=== PATIENT | male | born 1960 | race Hispanic/Latino ===

== ENCOUNTER 2020-02-24 12:23 | Emergency (ER) | payer OTHER ==
[2020-02-24 13:25] LABS: Basophils % 0.7 % (0-1.3); Hematocrit 44.8 % (39.6-49.0); Lymphocytes % 14.5 % (15.3-44.8); RBC Red Blood Cell Count 5.23 M/uL (4.33-5.43)
--- NOTE | 2020-02-24 13:33 | RAD REPORT ---
EXAM DESCRIPTION: CT - Head Brain Wo Cont - 02/24/2020 1:22 pm CLINICAL HISTORY: Visual disturbance COMPARISON: None. TECHNIQUE: Computed axial tomography of the head was obtained. IV contrast was not requested. All CT scans are performed using dose optimization technique as appropriate and may include automated exposure control or mA/KV adjustment according to patient size. FINDINGS: An intracranial bleed is not seen . The ventricles are normal in caliber. No extra-axial fluid collection is noted. Fluid within the sinuses/ mastoids is not seen. IMPRESSION: No acute intracranial abnormality is seen. If patient's symptoms persist MRI of the bra in would be recommended.
[2020-02-24 13:43] LABS: ALT/SGPT 32 U/L (12-78); AST/SGOT 20 U/L (15-37); Albumin 3.8 g/dL (3.4-5.0); Alkaline Phosphatase 118 U/L (45-117); BUN Blood Urea Nitrogen 16 mg/dL (7-18); Bicarbonate 25 mmol/L (21-32); Bilirubin Direct 0.2 mg/dL (0-0.2); Bilirubin Total 0.8 mg/dL (0.2-1.0); Glucose Level 104 mg/dL (74-106); Magnesium 2.3 mg/dL (1.8-2.4); NT PRO-BNP 174 pg/mL (<125); Protein, Total 7.4 g/dL (6.4-8.2); Sodium Level 140 mmol/L (136-145); Troponin (Emerg Dept Use Only) < 0.02 ng/mL (0.0-0.045)
--- NOTE | 2020-02-24 14:28 | RAD REPORT ---
EXAM DESCRIPTION: Khang Single View02/24/2020 2:03 pm CLINICAL HISTORY: Chest pain COMPARISON: none FINDINGS: Lungs are hyperaerated. The lungs appear clear of acute infiltrate. The heart is normal size IMPRESSION: No acute abnormalities displayed
--- NOTE | 2020-02-24 15:43 | RAD REPORT ---
EXAM DESCRIPTION: USCarotid Artery Bilateral02/24/2020 3:21 pm CLINICAL HISTORY: Blurred vision COMPARISON: None FINDINGS: The velocity of the right internal carotid artery equals eighty-seven cm/sec. The right IC A/CCA ratio 1. The velocity of the left internal carotid artery equals 77 cm/sec. The left ICA/CCA ratio 0.8 Mild plaque is present within the carotid arteries. The vertebral arteries demonstrate antegrade flow IMPRESSION: Mild plaque within the carotid arteries without evidence of a hemodynamically significan t stenosis NASCET criteria used. Mild 0-49% stenosis Moderate 50-69% stenosis Severe 70-99% stenosis
--- NOTE | 2020-02-24 16:05 | EDPHYS ---
Physician Documentation [facility] Name: Levy Chicas Age: 60 yrs Sex: Male : 1960 Arrival Date: 02/24/2020 Time: 12:26 Bed 5 Private MD: ED Physician Bello Peña HPI: 02/23 12:51 This 60 yrs old Male presents to ER via Ambulatory with complaints of Vision jmm Problem. 12:51 The patient's problem is reported as visual difficulty, blurred vision, double vision. jmm Onset: The symptoms/episode began/occurred acutely, 4 day(s) ago. The symptoms are alleviated by nothing. The symptoms are aggravated by nothing. Associated signs and symptoms: Pertinent positives: blurred vision, lightheadedness, weakness. This is a 60 year old male with no known chronic medical conditions that presents to the ED with complaints of acute onset of blurred while riding in his boat as he turned to look at the shoreline. Patient states it initially began as double vision, the patient then developed blurred vision. These symptoms resolved after 3 minutes. Patient states that since he developed generalized weakness with tingling sensation to his hands. Denies chest pain, shortness of breath, unilateral weakness. . Historical: - Allergies: 12:54 No Known Allergies; ss - Home Meds: 12:54 None [Active]; ss - PMHx: 12:54 None; ss - Immunization history:: Adult Immunizations unknown. - Social history:: Smoking status: Patient reports the use of cigarette tobacco products, smokes one pack cigarettes per day. Patient uses alcohol, occasionally. ROS: 12:51 Constitutional: Negative for fever, chills, and weight loss, Cardiovascular: Negative jmm for chest pain, palpitations, and edema, Respiratory: Negative for shortness of breath, cough, wheezing, and pleuritic chest pain, Abdomen/GI: Negative for abdominal pain, nausea, vomiting, diarrhea, and constipation. 12:51 MS/extremity: Positive for 12:51 Neuro: Positive for visual changes, weakness. 12:51 All other systems are negative. Exam: 12:51 Radiologist reports: no acute process jmm 12:51 Constitutional: This is a well developed, well nourished patient who is awake, alert, and in no acute distress. Head/Face: atraumatic. 12:51 ENT: Moist Mucus Membranes Neck: Trachea midline, Supple Chest/axilla: Normal chest wall appearance and motion. Cardiovascular: Regular rate and rhythm. No edema appreciated Respiratory: Normal respirations, no respiratory distress appreciated Abdomen/GI: Non distended, soft Back: Normal ROM Skin: General appearance color normal MS/ Extremity: Moves all extremities, no obvious deformities appreciated, no edema noted to the lower extremities 12:51 Eyes: Extraocular movements: intact throughout, Visual florian: are intact. 12:51 Neuro: Orientation: is normal, Mentation: is normal, Memory: is normal, Cerebellar function: normal finger to nose testing, heel to wisdom testing is normal, Gait: appropriate for age. 12:51 Psych: Behavior/mood is pleasant, cooperative. 14:03 ECG was reviewed by the Attending Physician. [facility] Vital Signs: 12:30 BP 152 / 83; Pulse 77; Resp 16; Temp 98; Pulse Ox 98% ; Weight 99.79 kg; Height 6 ft. ss (182.88 cm); 14:00 BP 134 / 81; Pulse 81; Resp 16; Pulse Ox 99% ; bp 15:00 BP 152 / 83; Pulse 83; Resp 19; Pulse Ox 99% ; bp 16:00 BP 101 / 62; Pulse 84; Resp 19; Pulse Ox 98% ; bp 12:30 Body Mass Index 29.84 (99.79 kg, 182.88 cm) ss MDM: 12:[address] [facility] 16:03 Data reviewed: vital signs, nurses notes. Counseling: I had a detailed discussion with [facility] the patient and/or guardian regarding: the historical points, exam findings, and any diagnostic results supporting the discharge/admit diagnosis, the need for outpatient follow up, to return to the emergency department if symptoms worsen or persist or if there are any questions or concerns that arise at home. 02/23 12:52 Order name: Basic Metabolic Panel; Complete Time: 13:49 [facility] 02/23 12:52 Order name: CBC with Diff; Complete Time: 13:31 [facility] 02/23 12:52 Order name: LFT's; Complete Time: 13:49 [facility] 02/23 12:52 Order name: Magnesium; Complete Time: 13:49 [facility] 02/23 12:52 Order name: NT PRO-BNP; Complete Time: 13:49 [facility] 02/23 12:52 Order name: PT-INR; Complete Time: 13:49 [facility] 02/23 12:52 Order name: Troponin (emerg Dept Use Only); Complete Time: 13:49 [facility] 02/23 12:52 Order name: XRAY Chest (1 view); Complete Time: 14:52 [facility] 02/23 12:52 Order name: EKG; Complete Time: 12:53 [facility] 02/23 12:52 Order name: Cardiac monitoring; Complete Time: 12:58 [facility] 02/23 12:52 Order name: EKG - Nurse/Tech; Complete Time: 12:58 [facility] 02/23 12:52 Order name: IV Saline Lock; Complete Time: 12:58 [facility] 02/23 12:52 Order name: CT Head Brain wo Cont; Complete Time: 13:49 [facility] 02/23 13:57 Order name: US Carotid Artery Bilateral; Complete Time: 15:49 [facility] 02/23 12:52 Order name: Labs collected and sent; Complete Time: 12:59 [facility] 02/23 12:52 Order name: O2 Per Protocol; Complete Time: 12:58 [facility] 02/23 12:52 Order name: O2 Sat Monitoring; Complete Time: 12:58 jmm EC:03 Rate is 56 beats/min. Rhythm is regular. QRS [place] is Normal. [place] interval is normal. QRS jmm interval is normal. QT interval is normal. No Q waves. T waves are Normal. No ST changes noted. Reviewed by me. Administered Medications: No medications were administered Disposition: 02/24 07:32 Co-signature as Attending Physician, Bello Peña MD I agree with the assessment and lennox plan of care. Disposition: 02/24/20 16:04 Discharged to Home. Impression: Diplopia, Paresthesia of skin, Malaise and fatigue. - Condition is Stable. - Discharge Instructions: Diplopia, Paresthesia, Fatigue. - Medication Reconciliation Form, Thank You Letter, Antibiotic Education, Prescription Opioid Use form. - Follow up: Guillermo Hassan MD; When: 2 - 3 days; Reason: Recheck today's complaints, Continuance of care, Re-evaluation by your physician. Follow up: Charles Casper MD; When: 2 - 3 days; Reason: Recheck today's complaints, Continuance of care, Re-evaluation by your physician. Signatures: Dispatcher [employer] EDBello Fontaine MD MD cha Mickail, Joel, PA PA jmm Smirch, Shelby, ADAM RN Maury Ma, ADAM RN bp Corrections: (The following items were deleted from the chart) 02/23 16:11 16:04 02/24/2020 16:04 Discharged to Home. Impression: Diplopia; Paresthesia of skin; bp Malaise and fatigue. Condition is Stable. Forms are Medication Reconciliation Form, Thank You Letter, Antibiotic Education, Prescription Opioid Use. Follow up: Guillermo Hassan; When: 2 - 3 days; Reason: Recheck today's complaints, Continuance of care, Re-evaluation by your physician. Follow up: Charles Casper; When: 2 - 3 days; Reason: Recheck today's complaints, Continuance of care, Re-evaluation by your physician. kris
--- NOTE | 2020-02-24 16:05 | ER ---
Nurse's Notes [facility] Name: Levy Chicas Age: 60 yrs Sex: Male : 1960 Arrival Date: 02/24/2020 Time: 12:26 Bed 5 Private MD: Diagnosis: Diplopia;Paresthesia of skin;Malaise and fatigue Presentation: 02/23 12:30 Chief complaint: Patient states: MOMENTARY DIPLOPIA 5 DAYS AGO, RESOLVED IN MINUTES. ss Coronavirus screen: Patient denies fever greater than 100.4F, cough, shortness of breath, or difficulty breathing. Ebola Screen: No symptoms or risks identified at this time. Initial Sepsis Screen: Does the patient meet any 2 criteria? No. Patient's initial sepsis screen is negative. Does the patient have a suspected source of infection? No. Patient's initial sepsis screen is negative. Risk Assessment: Do you want to hurt yourself or someone else? Patient reports no desire to harm self or others. 12:30 Method Of Arrival: Ambulatory ss 12:30 Acuity: JOSEPHINE 3 ss Triage Assessment: 12:30 General: Appears in no apparent distress. comfortable, Behavior is calm, cooperative, ss appropriate for age. Pain: Denies pain. EENT: No deficits noted. Neuro: Level of Consciousness is awake, alert, obeys commands, Oriented to person, place, time, situation, Appropriate for age Geriatric Physical Therapist are equal bilaterally Gait is steady, Speech is normal, Facial symmetry appears normal. Cardiovascular: No deficits noted. Respiratory: No deficits noted. GI: No signs and/or symptoms were reported involving the gastrointestinal system. : No signs and/or symptoms were reported regarding the genitourinary system. Derm: No deficits noted. Musculoskeletal: No deficits noted. Historical: - Allergies: 12:54 No Known Allergies; ss - Home Meds: 12:54 None [Active]; ss - PMHx: 12:54 None; ss - Immunization history:: Adult Immunizations unknown. - Social history:: Smoking status: Patient reports the use of cigarette tobacco products, smokes one pack cigarettes per day. Patient uses alcohol, occasionally. Screenin:56 Abuse screen: Denies threats or abuse. Denies injuries from another. Nutritional ss screening: No deficits noted. Tuberculosis screening: No symptoms or risk factors identified. Fall Risk None identified. No fall in past 12 months (0 pts). Ambulatory Aid- None/Bed Rest/Nurse Assist (0 pts). Assessment: 12:55 General: SEE TRIAGE NOTE. ss 14:15 Reassessment: ALL CURRENT ORDERS COMPLETED, PT CURRENTLY ASYMPTOMATIC, RESULTS PENDING bp FOR DISPO. 16:00 Reassessment: ALL CURRENT ORDERS COMPLETE. PT EXPRESSES RELIEF OF S/S, DISPO PENDING. bp 16:10 Reassessment: PT D/C HOME AMBULATORY, DX WITH DIPLOPIA AND PARASTHESIA OF SKIN. bp Vital Signs: 12:30 BP 152 / 83; Pulse 77; Resp 16; Temp 98; Pulse Ox 98% ; Weight 99.79 kg; Height 6 ft. ss (182.88 cm); 14:00 BP 134 / 81; Pulse 81; Resp 16; Pulse Ox 99% ; bp 15:00 BP 152 / 83; Pulse 83; Resp 19; Pulse Ox 99% ; bp 16:00 BP 101 / 62; Pulse 84; Resp 19; Pulse Ox 98% ; bp 12:30 Body Mass Index 29.84 (99.79 kg, 182.88 cm) ED Course: 12:26 Patient arrived in ED. mr 12:30 Arm band placed on. ss 12:42 Lalito Pang PA is PHCP. jmm 12:42 Bello Peña MD is Attending Physician. jmm 12:44 Juanita Briscoe, RN is Primary Nurse. ss 12:53 Triage completed. ss 12:57 Patient has correct armband on for positive identification. Bed in low position. Call ss light in reach. Side rails up X2. 13:00 Inserted saline lock: 20 gauge in right wrist, using aseptic technique. Blood collected.bp 13:21 CT completed. Patient tolerated procedure well. Patient moved back from CT. bq 13:23 CT Head Brain wo Cont In Process Unspecified. EDMS 14:05 XRAY Chest (1 view) In Process Unspecified. EDMS 14:13 Primary Nurse role handed off by Juanita Briscoe, RN bp 14:13 Maury Berry, RN is Primary Nurse. bp 15:20 Ultrasound completed. Patient tolerated well. sg3 15:21 US Carotid Artery Bilateral In Process Unspecified. EDMS 16:03 Guillermo Hassan MD is Referral Physician. jmm 16:04 Charles Casper MD is Referral Physician. jmm 16:10 No provider procedures requiring assistance completed. IV discontinued, intact, bp bleeding controlled, No redness/swelling at site. Pressure dressing applied. Administered Medications: No medications were administered Outcome: 16:04 Discharge ordered by . [facility] 16:10 Discharged to home ambulatory. bp 16:10 Condition: stable 16:10 Discharge instructions given to patient, Instructed on discharge instructions, follow up and referral plans. Demonstrated understanding of instructions, follow-up care. 16:11 Patient left the ED. bp Signatures: Dispatcher [employer] EDMS Lalito Pang PA PA wilda Diane Veliz mr Alyson, Juanita Scott RN RN Maury Ma RN RN bp Brianne Shepherd sg3
[2020-02-24 16:21] VITALS: TEMP 98
[2020-02-24 16:25] VITALS: BP 101/62; O2SAT 98
--- NOTE | 2020-02-26 05:28 | EKG ---
Test Date: 2020-02-24 Test Time: 14:00:05 Child & Adolescent Psychiatrist: CARLOS MEASUREMENT RESULTS: Intervals: Rate: 56 MT: 154 QRSD: 96 QT: 386 QTc: 372 [place]: P: 34 MT: 154 QRS: 0 T: 37 INTERPRETIVE STATEMENTS: Sinus bradycardia Incomplete right bundle branch block Borderline ECG No previous ECG available for comparison Electronically Signed On 02-26-20 05:25:37 CDT by Guillermo Hassan
== END 2020-02-24 16:11 | disposition home or self-care (01) ==
LOC: ER 12:23
DX: R20.2 Paresthesia of skin (principal); R53.1 Weakness; R53.83 Other fatigue; R53.81 Other malaise; Z72.0 Tobacco use
CPT/HCPCS: 36415; 70450; 71045; 80048; 80076; 83735; 83880; 84484; 85025; 85610; 93005; 93880; 99284

== ENCOUNTER 2023-02-07 10:30 | Day surgery (SDC) | payer OTHER ==
[2023-02-04 16:07] LABS: Absolute Lymphocytes (CBC) 1.6 K/uL (0.7-4.9); Hematocrit 42.8 % (39.6-49.0); Lymphocytes % 20.3 % (15.3-44.8); MCV 87.8 fL (80-100); MPV 8.6 fL (7.6-11.3); RBC Red Blood Cell Count 4.88 M/uL (4.33-5.43)
[2023-02-04 16:11] LABS: Protime INR 0.95
[2023-02-04 16:21] LABS: Potassium 4.6 mmol/L (3.5-5.1)
--- NOTE | 2023-02-04 18:08 | RAD REPORT ---
EXAM DESCRIPTION: Steffanyt Pa And Lat (2 Views)02/04/2023 2:25 pm CLINICAL HISTORY: Pre op pending abdominal angiogram COMPARISON: Chest Single View dated 02/24/2020 TECHNIQUE: PA and lateral views of the chest. FINDINGS: The lungs are clear.Hyperlucency and hyperinflation, suggestive of sequelae of COPD. No pn eumothorax or effusion. The cardiomediastinal contours are unremarkable. IMPRESSION: No acute cardiopulmonary process. Sequelae of COPD.
[2023-02-07] MEDS ORDERED: FENTANYL CITR 100 MCG/2 ML ONE (10:36)
[2023-02-07] MEDS ORDERED: HEPARIN 5000 UNIT/ML 1 ML VIAL ONE (10:36)
[2023-02-07] MEDS ORDERED: HEPA 1000U/500MLS 2,000 UNIT/1,000 ML BAG IV ONE (10:36)
[2023-02-07] MEDS ORDERED: LIDOCAINE 1% 20 ML MDV ONE (10:36)
[2023-02-07] MEDS ORDERED: MIDAZOLAM HCL 2 MG/2 ML INJ ONE (10:36)
[2023-02-07] MEDS ORDERED: NITROGLYCERIN/D5W 25 MG/250 ML BTL IV ONE (10:37)
[2023-02-07] MEDS ORDERED: HEPARIN 10,000 UNIT/10 ML VIAL IV ONE (10:37)
[2023-02-07] MEDS ORDERED: VERAPAMIL HCL 10 MG/4 ML VIAL IV ONE (10:37)
[2023-02-07] MEDS ORDERED: ATROPINE SULF 1 MG/10 ML SYR IV ONE (10:37)
[2023-02-07] MEDS ORDERED: NITROGLYCERIN 100 MCG/ML SYR (for cath lab use only) IV ONE (10:37)
[2023-02-07] MEDS ORDERED: NA CHLORIDE 0.9% 500 ML ONE (10:52)
[2023-02-07 11:03] VITALS: TEMP 98.5
--- NOTE | 2023-02-07 13:12 | EKG ---
Test Date: 2023-02-04 Test Time: 14:04:01 Superintendent Quarry: FALGUNI MEASUREMENT RESULTS: Intervals: Rate: 59 OK: 150 QRSD: 94 QT: 398 QTc: 394 [place]: P: 26 OK: 150 QRS: 36 T: 65 INTERPRETIVE STATEMENTS: Sinus bradycardia Otherwise normal ECG Compared to ECG 02/24/2020 14:00:05 Incomplete right bundle-branch block no longer present Electronically Signed On 02-07-23 13:07:44 CDT by Tyree Salamanca
[2023-02-07 13:50] VITALS: O2SAT 98
--- NOTE | 2023-02-07 13:54 | OP ---
Date of Procedure: 02/07/2023 Surgeon: KIMMY MCKINNEY Procedure Performed: Peripheral angiogram with run off. Indication: Peripheral vascular disease. Access: Right radial artery 6-Fijian closed with TR band. Complications: None. Bleeding: Less than 10 mL. Anesthesia: Total sedation time was 15 minutes. Description Of Procedure: After risks, benefits, symptoms were explained, the patient agreed to proc edure and signed informed consent. The patient was brought into the cardiac catheterization laborato ry, prepped and draped in the usual fashion. Then, I accessed right radial artery using pediatric mi cropuncture kit, placed a 6-Fijian slender sheath. Then, I took a long pigtail catheter 4-Fijian int o the distal aorta, performed distal aortogram with runoff. I then removed the catheter and sheath, placed TR band with good hemostasis. Findings: 1.Distal aorta widely patent. 2.The right common iliac, internal iliac, and common femoral arteries are widely patent, right SFA t here is ostial 80% stenosis and the profunda is small, but patent. The rest of SFA appears to be gloria an of disease, below the knee vessels did not fill very well due to the proximal stenosis. 3.The left common iliac, internal iliac, common femoral, profunda, SFA, and below the knee arteries on the left side were all patent. Conclusion: Severe ostial right SFA stenosis. Plan: Do balloon angioplasty, plus minus stenting with shock wave at [place] through the left vianey in access. SR/MODL Voice ID: [id number] Report ID: [id number]
[2023-02-07 14:38] VITALS: BP 141/64
== END 2023-02-07 14:15 | disposition home or self-care (01) ==
LOC: CCL 10:30
PROVIDERS: ATTEND Internal Medicine
DX: I70.221 Atherosclerosis of native arteries of extremities with rest pain, right leg (principal); I65.23 Occlusion and stenosis of bilateral carotid arteries; I10 Essential (primary) hypertension; Z87.891 Personal history of nicotine dependence; Z79.899 Other long term (current) drug therapy; Z88.8 Allergy status to other drugs, medicaments and biological substances
CPT/HCPCS: 93005; 85025; 80048; 36415; 85610; 85730; 71046; 36200; 75630; 76937; C1893; J1644; J2001; J2250; J3010; J7040; J0461